=== PATIENT | male | born 1985 | race Caucasian/White ===

== ENCOUNTER 2016-11-04 18:02 | Emergency (ER) | payer MEDICAID ==
[2016-11-04 18:07] VITALS: BP 144/89; PULSE 58; RESP 18; TEMP 98.1; O2SAT 99
[2016-11-04 20:02] LABS: BASO % 0.3 % (0.0-2.0); EOS # 0.1 K/uL (0.0-0.7); EOS % 1.4 % (0.0-4.0); HEMATOCRIT 42.5 % (35.0-51.0); LYMPH # 2.4 K/uL (1.0-4.3); LYMPH % 56.5 % (20.0-40.0); MEAN CELL VOLUME 79.7 fL (80.0-94.0); MEAN CORPUSCULAR HEMOGLOBIN 26.3 pg (27.0-31.0); MEAN CORPUSCULAR HGB CONC 32.9 g/dL (33.0-37.0); MEAN PLATELET VOLUME 9.5 fL (7.2-11.7); MONO # 0.4 K/uL (0.0-0.8); MONO % 10.5 % (0.0-10.0); RED CELL DISTRIBUTION WIDTH 14.8 % (11.5-14.5); WHITE BLOOD COUNT 4.2 K/uL (4.8-10.8)
[2016-11-04 20:05] LABS: CHLORIDE 103 mmol/L (98-107); POTASSIUM 3.9 mmol/L (3.6-5.2); SODIUM 144 mmol/L (132-148)
[2016-11-04 20:07] LABS: BILIRUBIN,TOTAL 0.5 mg/dL (0.2-1.3); GFR AFRICAN-AMERICAN > 60
[2016-11-04 20:08] LABS: ALB/GLOB RATIO 1.7 (1.0-2.1); ALKALINE PHOSPHATASE 64 U/L (38-126); ALT/SGPT 29 U/L (21-72); AST/SGOT 16 U/L (17-59); BLOOD UREA NITROGEN 16 mg/dL (9-20); CARBON DIOXIDE 23 mmol/L (22-30); GLUCOSE,RANDOM 75 mg/dL (75-110); TOTAL PROTEIN 7.1 g/dL (6.3-8.3)
[2016-11-04 20:11] LABS: RBC URINE 1 /hpf (0-3); URINE BACTERIA OCC (<OCC); URINE BILIRUBIN NEGATIVE (NEGATIVE); URINE BLOOD NEGATIVE (NEGATIVE); URINE COLOR Yellow (YELLOW); URINE GLUCOSE (UA) NORMAL (Normal); URINE KETONE NEGATIVE (NEGATIVE); URINE LEUKOCYTE ESTERASE NEG Leu/uL (Negative); URINE PROTEIN NEGATIVE (NEGATIVE); URINE UROBILINOGEN NORMAL mg/dL (0.2-1.0); WBC URINE < 1 /hpf (0-5)
--- NOTE | 2016-11-04 20:30 | C.PDOC ---
History Of Present Illness A 31 year old male, whose past medical history includes asthma, presents to the emergency department for cramping abdominal pain, which began 1 week ago. This is the patient's 9th visit for similar symptoms. All previous labs and images are negative. The patient denies any fever, chest pain, shortness of breath, or any other complaints at this time. Time Seen by Provider: 11/04/16 19:16 Chief Complaint (Nursing): Abdominal Pain History Per: Patient History/Exam Limitations: no limitations Onset/Duration Of Symptoms: Days (x 1 week ) Current Symptoms Are (Timing): Still Present Quality Of Discomfort: Cramping Associated Symptoms: denies: Fever, Chills, Chest Pain Past Medical History Vital Signs: Last Vital Signs Temp 98.1 F 11/04/16 18:03 Pulse 58 L 11/04/16 18:03 Resp 18 11/04/16 18:03 BP 144/89 11/04/16 18:03 Pulse Ox 99 11/04/16 20:30 - Medical History PMH: Asthma Family History: States: Unknown Family Hx - Social History Hx Tobacco Use: No Hx Alcohol Use: No Hx Substance Use: No - Immunization History Hx Tetanus Toxoid Vaccination: No Hx Influenza Vaccination: No Hx Pneumococcal Vaccination: No Review Of Systems Except As Marked, All Systems Reviewed And Found Negative. Constitutional: Negative for: Fever Cardiovascular: Negative for: Chest Pain Respiratory: Negative for: Shortness of Breath Gastrointestinal: Positive for: Abdominal Pain Physical Exam - Physical Exam Appears: Well, Non-toxic, No Acute Distress Skin: Normal Color, Warm, Dry Head: Atraumatic, Normacephalic Eye(s): bilateral: Normal Inspection, PERRL, EOMI Nose: Normal Throat: Normal Neck: Normal Cardiovascular: Rhythm Regular Respiratory: Normal Breath Sounds Gastrointestinal/Abdominal: Bowel Sounds (dull to percussion) Back: Normal Inspection Extremity: Normal ROM ED Course And Treatment - Laboratory Results Result Diagrams: 11/04/16 19:54 11/04/16 19:54 Lab Interpretation: Abnormal (microcytosis) O2 Sat by Pulse Oximetry: 99 - Radiology CXR: Interpreted by Me CXR Interpretation: Yes: No Acute Disease - Other Rad abd x 2 X-Ray: Interpreted by Me (+FOS) Reevaluation Time: 20:28 Reassessment Condition: Unchanged (remains asmptomatic.) Medical Decision Making Medical Decision Making: Treatment Plan: -- Obstructive Series Progress Notes: continued constipation issues, 9th ED visit for same. Pt very anxious, believes the periumbilical discomfort due to stomach issues/ gastritis/GERD, educated Microcytosis of ? etiology, consider pernicious anemia and refer for GE to consider colonoscopy Disposition Doctor Will See Patient In The: Office Counseled Patient/Family Regarding: Studies Performed, Diagnosis - Disposition Referrals: Amarjit Smith MD [Staff Provider] - Disposition: HOME/ ROUTINE Disposition Time: 20:30 Condition: GOOD Additional Instructions: constipation: Drink a laxative now: 1 bottle of Mag Citrate Re-evaluate your abdominal discomfort after using the bathroom 2-3 times. continue diet/exercise changes Colace 100 mg twice a day (stool softners) Iron deficiency anemia: Mild Consider colonoscopy and re-eval by GI Instructions: Constipation (ED), Iron Deficiency Anemia (ED) Forms: [employer] (Faroese) - Clinical Impression Clinical Impression: Abdominal discomfort - Scribe Statement The provider has reviewed the documentation as recorded by the Scribe Ninfa Khoury All medical record entries made by the Scribe were at my direction and personally dictated by me. I have reviewed the chart and agree that the record accurately reflects my personal performance of the history, physical exam, medical decision making, and the department course for this patient. I have also personally directed, reviewed, and agree with the discharge instructions and disposition.
--- NOTE | 2016-11-05 08:16 | RAD ---
PROCEDURE: Radiographs of the chest and abdomen (obstructive series) HISTORY: abd pain COMPARISON: No prior. TECHNIQUE: AP radiograph of the chest, with upright and supine radiographs of the abdomen. FINDINGS: CHEST: Lungs: Clear. Cardiovascular: Normal size heart. No pulmonary vascular congestion. Pleura: No pleural fluid. No pneumothorax. Other findings: None. ABDOMEN AND PELVIS: Bowel: Moderate stool retention. . No evidence of mechanical obstruction. No free air Free air: None. Bones: Unremarkable. Other findings: Bilateral hemipelvic phleboliths IMPRESSION: Unremarkable radiographs of chest. Moderate stool retention. No free air. No evidence of mechanical bowel obstruction.
== END 2016-11-04 20:40 | disposition home or self-care (01) ==
LOC: C.ER 18:02
DX: R10.9 Unspecified abdominal pain (principal)